=== PATIENT | male | born 1950 | race Caucasian/White ===

== ENCOUNTER 2016-06-20 20:29 | Emergency (ER) | payer OTHER, MEDICARE ==
[~2016-06-20 20:29] MED LIST: AMLO5 PO; BUPR100T4 PO; HYDR25TA5 PO; LACT10SO PO; LIDO5DIS35 TOPICAL; LORA10TA PO; LOSA100T PO; MOBI15TA PO; NORC5TAB PO; OXYB5TAB10 PO; POTA10TA8 PO; PRAZ5CAP PO; SIME80CH CHEW; VENL75TA PO; ZOLP10TA3 PO
== END 2016-06-20 21:09 | disposition left against medical advice (07) ==
LOC: PHED 20:29
DX: R05 Cough (principal)
CPT/HCPCS: 99281

== ENCOUNTER 2016-08-22 11:13 | Inpatient (IN) | payer MEDICARE, OTHER ==
[~2016-08-22] VITALS: Ht 180.3 cm
[2016-08-22] MEDS ORDERED: METOPROLOL TARTRATE 25 MG TAB PO PRN (12:00)
[2016-08-22] MEDS ORDERED: LACTATED RINGER'S 1000 ML IV SCH (12:00)
[2016-08-22] MEDS ORDERED: INSULIN HUMAN REGULAR 1,000 UNITS/10 ML VIAL SQ PRN (12:00)
[2016-08-22] MEDS ORDERED: SODIUM CHLORID 0.9% 500 ML IV SCH (12:00)
[2016-08-22] MEDS ORDERED: ceFAZolin 2 GM PREMIX 50 ML IV SCH (12:00)
[2016-08-22 12:14] VITALS: BP 144/87; PULSE 78; RESP 20; TEMP 98.5; O2SAT 98
[2016-08-22] MEDS ORDERED: PHENYLEPH/NS 1000 MCG/10 ML SYR IV ONE (12:37)
[2016-08-22] MEDS ORDERED: ONDANSETRON HCL 4 MG/2 ML VIAL IV PUSH ONE (12:37)
[2016-08-22] MEDS ORDERED: PROPOFOL 200 MG/20 ML AMP IV ONE (12:37)
[2016-08-22] MEDS ORDERED: NORMOSOL R INJ 2,000 ML IV ONE (12:37)
[2016-08-22] MEDS ORDERED: SODIUM CHLORID 0.9% 500 ML INJ 500 ML IV ONE (12:37)
[2016-08-22 13:01] LABS: PROTHROMBIN TIME - PATIENT 10.6 SEC (9.8-11.6)
[2016-08-22] MEDS ORDERED: MIDAZOLAM HCL 2 MG/2 ML VIAL ONE (13:31)
[2016-08-22] MEDS ORDERED: FAMOTIDINE 20 MG/2 ML VIAL ONE (13:31)
[2016-08-22] MEDS ORDERED: DEXAMETHASONE SOD PHOS 4 MG/ML VIAL ONE (13:31)
[2016-08-22] MEDS ORDERED: fentaNYL CITRATE 250 MCG/5 ML AMP ONE ×3 (13:38→17:59)
[2016-08-22] MEDS ORDERED: ARTIFICIAL TEARS OPTH OINT 3.5 APPLIC/3.5 GM TUBO ONE (13:38)
[2016-08-22] MEDS ORDERED: KETAMINE HCL 500 MG/5 ML VIAL ONE (15:10)
[2016-08-22] MEDS ORDERED: ceFAZolin INJ 1,000 MG VIAL IV ONE (16:29)
[2016-08-22] MEDS ORDERED: SUGAMMADEX SODIUM 200 MG/2 ML VIAL IV PUSH ONE ×2 (18:35)
[2016-08-22] MEDS ORDERED: ONDANSETRON HCL 4 MG/2 ML VIAL IV PUSH PRN (19:00)
[2016-08-22] MEDS ORDERED: MORPHINE SULFATE 8 MG/ML INJ IV PUSH PRN (19:00)
[2016-08-22] MEDS: SODIUM CHLOR 0.9% 1000 ML INJ 1,000 ML IV SCH (19:00)
[2016-08-22] MEDS ORDERED: MORPHINE SULFATE 30 MG/30 ML PCA ONE (19:09)
[2016-08-22] MEDS ORDERED: DO NOT ADM ANY ANTICOAGULANT DRUGS XX PRN (19:14)
[2016-08-22] MEDS ORDERED: *morphine SULFATE 8 MG/ML PERIprocedure ONLY ONE ×2 (19:20→19:38)
[2016-08-22] MEDS: PANTOPRAZOLE SODIUM 40 MG VIAL IV PUSH SCH (19:45)
[2016-08-22] MEDS: ACETAMINOPHEN 1000 MG/100 ML VIAL IV SCH (20:00)
[2016-08-22] MEDS ORDERED: NALOXONE HCL 0.4 MG/ML AMP IV PRN (20:00)
[2016-08-22] MEDS ORDERED: MORPHINE SULFATE 30 MG/30 ML PCA IV SCH (20:00)
[2016-08-22 20:30] LABS: AUTOMATED NEUTROPHIL # 11.5 TH/MM3 (1.8-7.7); BASOPHIL % 0.2 % (0.0-2.0); HEMATOCRIT 40.9 % (39.0-51.0); HEMO FLAGS DIFF FINAL; LYMPH % 6.3 % (9.0-44.0); LYMPHOCYTE # 0.8 TH/MM3 (1.0-4.8); MEAN CELL VOLUME 91.4 FL (80.0-100.0); MEAN CORPUSCULAR HEMOGLOBIN 32.3 PG (27.0-34.0); MEAN CORPUSCULAR HGB CONC 35.3 % (32.0-36.0); MONO % 3.4 % (0.0-8.0); NEUT % 90.1 % (16.0-70.0); PLATELET COUNT 193 TH/MM3 (150-450); RED BLOOD COUNT 4.47 MIL/MM3 (4.50-5.90); RED CELL DISTRIBUTION WIDTH 14.6 % (11.6-17.2); WHITE BLOOD COUNT 12.8 TH/MM3 (4.0-11.0)
[2016-08-22 20:43] LABS: BICARBONATE 26.6 MEQ/L (21.0-32.0); POTASSIUM 3.6 MEQ/L (3.5-5.1)
[2016-08-22] MEDS: DOCUSATE SODIUM 100 MG CAP PO SCH (21:00)
[2016-08-22] MEDS: PRAZOSIN HCL 5 MG CAP PO SCH (21:00)
[2016-08-22 21:16] VITALS: RESP 18
[2016-08-22] MEDS: PCA - TOTAL MG MORPHINE DELIVERED PER SHIFT SCH (21:21)
[2016-08-22 21:28] VITALS: BP 118/78; PULSE 81; RESP 20; TEMP 97.8; O2SAT 98
[2016-08-23] VITALS (8 sets, daily range): BP systolic 112–156; BP diastolic 75–85; PULSE 75–86; RESP 18–20; TEMP 96.4–98.3; O2SAT 93–98
[2016-08-23] MEDS: ZOLPIDEM TARTRATE 10 MG TAB PO PRN ×2 (01:28→20:10)
[2016-08-23] MEDS: ACETAMINOPHEN 1000 MG/100 ML VIAL IV SCH ×4 (01:29→20:00)
[2016-08-23] MEDS: SODIUM CHLOR 0.9% 1000 ML INJ 1,000 ML IV SCH ×3 (04:39→20:10)
[2016-08-23] MEDS: PCA - TOTAL MG MORPHINE DELIVERED PER SHIFT SCH (05:33)
[2016-08-23 06:18] LABS: HEMATOCRIT 37.1 % (39.0-51.0); MEAN CORPUSCULAR HEMOGLOBIN 32.4 PG (27.0-34.0); MEAN CORPUSCULAR HGB CONC 35.2 % (32.0-36.0); PLATELET COUNT 136 TH/MM3 (150-450); RED BLOOD COUNT 4.04 MIL/MM3 (4.50-5.90); RED CELL DISTRIBUTION WIDTH 14.2 % (11.6-17.2); REVIEW FLAG FINAL; WHITE BLOOD COUNT 8.5 TH/MM3 (4.0-11.0)
[2016-08-23 06:36] LABS: BICARBONATE 29.1 MEQ/L (21.0-32.0); POTASSIUM 3.5 MEQ/L (3.5-5.1)
[2016-08-23] MEDS: amLODIPine BESYLATE 5 MG TAB PO SCH (07:41)
[2016-08-23] MEDS: LOSARTAN 50 MG TAB PO SCH (07:41)
[2016-08-23] MEDS: HYDROCHLOROTHIAZIDE 25 MG TAB PO SCH (07:41)
[2016-08-23] MEDS: DOCUSATE SODIUM 100 MG CAP PO SCH ×2 (07:41→20:10)
[2016-08-23] MEDS: VENLAFAXINE HCL XR 75 MG CAP PO SCH (07:42)
[2016-08-23] MEDS: LIDOCAINE HCL 5% PATCH TD SCH (07:46)
--- NOTE | 2016-08-23 08:09 | HHI.PR ---
Subjective Remarks no acute issues overnight. pain controlled with [employer]ER. Denies N/V/F/C/flatus. Has not been OOB. Hungry Objective Vital Signs Vital Signs Date Time Temp Pulse Resp B/P Pulse Ox O2 Delivery O2 Flow Rate FiO2 08/23/16 07:37 18 08/23/16 05:35 18 08/23/16 05:33 18 08/23/16 04:00 96.4 78 20 121/76 97 08/23/16 00:00 96.6 75 20 112/75 98 08/22/16 21:28 97.8 81 20 118/78 98 08/22/16 21:21 18 08/22/16 21:16 18 08/22/16 20:45 97.8 79 14 123/76 95 Nasal Cannula 2 08/22/16 20:30 78 15 122/81 97 Nasal Cannula 2 08/22/16 20:15 81 14 128/89 97 Nasal Cannula 2 08/22/16 20:00 79 12 136/88 97 Nasal Cannula 2 08/22/16 19:45 81 12 143/82 97 Simple Mask 10 08/22/16 19:30 75 14 122/85 97 Simple Mask 10 08/22/16 19:30 14 08/22/16 19:15 83 14 147/67 98 Simple Mask 10 08/22/16 19:10 98.5 78 16 149/79 99 Simple Mask 10 08/22/16 12:14 98.5 78 20 144/87 98 I/O 08/22/16 08/22/16 08/22/16 08/23/16 08/23/16 08/23/16 07:00 15:00 23:00 07:00 15:00 23:00 Intake Total 3150 ml 860 ml Output Total 1025 ml 850 ml Balance 2125 ml 10 ml Intake Oral 0 ml IV Total 550 ml 860 ml Other 2600 ml Output Urine Total 250 ml 850 ml Estimated Blood Loss 150 ml Other 625 ml # Bowel Movements 0 Result Diagram: 08/23/1630 08/23/16 0530 Objective Remarks NAD. A/O x 3 CTAB RRR abd soft, distended, non-tender, no peritoneal signs. Inc c/d/i rousseau urine clear Ext NT. No c/c/e Assessment and Plan Assessment and Plan POD#1 s/p Extensive Lysis of Adhesions, Left Robotic Radical Nephrectomy -Hgb stable. -D/C [employer]ER -Advance diet. -Ambuate -DVT/GI prophylaxis Anant Nicholas MD Aug 23, 2016 08:09
[2016-08-23] MEDS ORDERED: MORPHINE SULFATE 8 MG/ML INJ IV PUSH PRN (09:00)
[2016-08-23] MEDS: SIMETHICONE 80 MG CHEWABLE TAB CHEW PRN (16:24)
[2016-08-23] MEDS: PANTOPRAZOLE SODIUM 40 MG VIAL IV PUSH SCH (18:12)
[2016-08-23] MEDS: PRAZOSIN HCL 5 MG CAP PO SCH (20:10)
[2016-08-24] VITALS: BP 146/86; PULSE 81; RESP 18; TEMP 98.2; O2SAT 93
[2016-08-24] MEDS: ACETAMINOPHEN 1000 MG/100 ML VIAL IV SCH ×3 (03:19→12:52)
[2016-08-24 04:00] VITALS: BP 134/79; PULSE 79; RESP 17; TEMP 96.8; O2SAT 93
[2016-08-24 08:00] VITALS: BP 169/90; PULSE 75; RESP 18; TEMP 97.5; O2SAT 96
[2016-08-24] MEDS: DOCUSATE SODIUM 100 MG CAP PO SCH ×2 (08:30→22:22)
[2016-08-24] MEDS: HYDROCHLOROTHIAZIDE 25 MG TAB PO SCH (08:32)
[2016-08-24] MEDS: amLODIPine BESYLATE 5 MG TAB PO SCH (08:32)
[2016-08-24] MEDS: LOSARTAN 50 MG TAB PO SCH (08:32)
[2016-08-24] MEDS: LIDOCAINE HCL 5% PATCH TD SCH (08:42)
[2016-08-24] MEDS: VENLAFAXINE HCL XR 75 MG CAP PO SCH (08:43)
[2016-08-24 12:00] VITALS: BP 139/80; PULSE 75; RESP 19; TEMP 98; O2SAT 96
[2016-08-24] MEDS: SODIUM CHLOR 0.9% 1000 ML INJ 1,000 ML IV SCH (12:33)
--- NOTE | 2016-08-24 13:28 | HHI.PR ---
Subjective Remarks pain controlled. tolerating regular diet. feels bloated. denies nausea. passing small amount of flatus. ambulating. Denies CP/SOB. Voiding on own. Objective Vital Signs Vital Signs Date Time Temp Pulse Resp B/P Pulse Ox O2 Delivery O2 Flow Rate FiO2 08/24/16 12:00 98.0 75 19 139/80 96 08/24/16 08:00 97.5 75 18 169/90 96 08/24/16 04:00 96.8 79 17 134/79 93 08/24/16 00:00 98.2 81 18 146/86 93 08/23/16 20:00 96.8 86 18 156/80 93 08/23/16 17:22 18 08/23/16 16:00 97.8 86 18 145/85 97 08/23/16 14:38 18 I/O 08/23/16 08/23/16 08/23/16 08/24/16 08/24/16 08/24/16 07:00 15:00 23:00 07:00 15:00 23:00 Intake Total 860 ml 1535 ml 240 ml 1470 ml Output Total 850 ml 1250 ml 1550 ml 500 ml 2300 ml Balance 10 ml 285 ml -1310 ml 970 ml -2300 ml Intake Oral 0 ml 480 ml 240 ml 240 ml IV Total 860 ml 1055 ml 1230 ml Output Urine Total 850 ml 1250 ml 1550 ml 500 ml 2300 ml # Voids 3 # Bowel Movements 0 0 Result Diagram: 08/23/16 0530 08/23/16 0530 Objective Remarks NAD. A/O x 3 CTAB RRR abd soft, distended, non-tender, no peritoneal signs. Inc c/d/i Ext NT. No c/c/e Assessment and Plan Assessment and Plan POD#2 s/p Extensive Lysis of Adhesions, Left Robotic Radical Nephrectomy -Hgb stable. -Hep loc -Advance diet. -Ambuate -DVT/GI prophylaxis -Likely d/c home tomorrow Anant Nicholas MD Aug 24, 2016 13:28
[2016-08-24] MEDS ORDERED: oxyCODONE/ACETAMINOPHEN 5 MG/325 MG TAB PO PRN (13:30)
--- NOTE | 2016-08-24 14:23 | MP ---
cc: ANANT TERRAZAS MD DATE OF SURGERY: 08/22/2016 PREOPERATIVE DIAGNOSIS 1. Left renal cell carcinoma status post CT-guided percutaneous biopsy. 2. Hypertension. 3. Status post liver resection. POSTOPERATIVE DIAGNOSIS 1. Left renal cell carcinoma status post CT-guided percutaneous biopsy. 2. Hypertension. 3. Status post liver resection. PROCEDURE PERFORMED 1. Extensive laparoscopic lysis of adhesions. 2. Robotic-assisted laparoscopic left radical nephrectomy. SURGEON Dr. Terrazas. ANESTHESIA General. COMPLICATIONS None. PREOPERATIVE ANTIBIOTICS Ancef 1 gram IV. DRAINS 16-Khmer Stern catheter to gravity drainage. SPECIMENS Left kidney for permanent. BLOOD LOSS 150 mL. FLUIDS 1200 mL crystalloids. DISPOSITION To recovery. INDICATIONS The patient is a 66-year-old male who was found to have incidentally 3-1/2 cm ___ left upper pole renal mass. The patient underwent a CT-guided percutaneous biopsy which was found to be renal cell carcinoma. Treatment options were discussed including active surveillance versus partial nephrectomy versus open radical nephrectomy. The risks, benefits and alternatives and potential side effects of each one were carefully explained. He elected to proceed with laparoscopic-assisted robotic partial left nephrectomy. However, he did understand that due to his previous abdominal surgery from his liver resection and his hiatal hernia repair, there was a high chance that it could be open as well as a chance that he may lose the entire kidney. Despite these risks, he elected to proceed and informed consent was obtained. PROCEDURE IN DETAIL The patient was properly identified, brought back to the operating room and placed supine on the operating table. Appropriate time-out was performed. Under anesthesiology the patient was intubated induced under general aesthetic. Preop antibiotics in the form of Ancef 1 gram IV were given before starting the procedure. Appropriate time-out was performed. The patient was then placed in the right lateral decubitus position with left side up, all pressure points were padded following the placement of Stern catheter. He was then prepped and draped in normal sterile surgical fashion. He had a large midline scar from his pubic symphysis up to his sternum. Therefore, a stab incision was made in the left upper quadrant about two fingerbreadths below the subcostal margin. A 5 mm Visiport was then placed under direct visualization into the abdominal cavity. On initial inspection there was significant amount of adhesions specifically omentum adhered to the anterior abdominal wall. I was able to find a window with the 5 mm Visiport. Once I was able to find this window the colon and near the kidney appeared to be normal. However, looking back towards the midline anterior abdominal wall, there was a veil of omentum and small bowel adhered to the anterior abdominal wall. Under direct visualization I then placed a 8-mm robotic port approximately a handbreadth off of the ASIS and was able to take down some adhesions, however, I was not able to completely remove the omentum off the anterior abdominal wall. I then did a second stab incision more lateral along the subcostal margin in line with the previously placed 5 mm port and exchanged the 5 mm port with a 8 mg port. The 5 mm Visiport was then placed in this new incision. With the 5 mm degree lens to the 8 mm lower quadrant port I was able to take down the rest of the adhesions through the newly placed 5 mm port. Once these adhesions were taken down I was able to successfully place a midline 12 mm camera port just lateral to the umbilicus under direct visualization. A 12 mm per diem physical therapist assistant port was then placed in between the 8 mm left hand robotic port and the camera port. Again, all these ports were placed under direct visualization. The robot was then brought into position. I was able to take down the white line of Toldt and reflect the colon medially. The kidney itself appeared to have significant perinephric fat. I was then able to reflect the colon medially to expose the retroperitoneum and I was easily able to find the gonadal vein and the ureter. A plane was made in between the ureter and the psoas muscle. I then retracted the large kidney towards the anterior abdominal wall and marched cephalad up the psoas muscle following the gonadal vein to the insertion of the left renal vein. There was several lumbar veins that were seen, these were taken with the robotic vessel sealer. At this point I was able to find the insertion of the gonadal vein into the left renal vein. This was taken with the vessel sealer as well after dissecting out circumferentially. Some of the lymphatic tissue was then carefully dissected off of the hilum. This exposed the renal artery and renal vein. At this point I then began to mobilize the rest of the kidney in preparation for doing a partial nephrectomy. However, in the upper pole where the mass was located it was significantly scarred in and inflamed, in fact it was completely attached to the spleen and the splenorenal ligament. I attempted to dissect off the perinephric fat around this area but it was very sticky and inflamed and almost concrete in nature. At this point I decided that it would be safely to remove the kidney. At this point I carefully dissected the upper pole attachments which was quite difficult due to the biopsy and inflammatory desmoplastic reaction, however I was eventually able to mobilize the upper pole, at this time with the endovascular stapler I then took the artery and vein separately. I then came across the remaining upper pole attachments and did come across the left adrenal gland Partially. At this point the kidney was then completely free except for the inferior portion with the ureter and the gonadal vein. This was taken with endovascular GI stapler. At this point the kidney was extremely large and was unable to be placed in a bag for later removal. I therefore extended the left upper quadrant excision and extracted the kidney through this incision. It was then closed with a running 1-0 PDS. ____ was then performed. The underside of the incision was free of bowel. There was no evidence of any bleeding within the abdominal cavity itself. All ports were removed under direct visualization. These were then closed with 4-0 Monocryl. Of note, the first 45 minutes of this case involved taking down the abdominal adhesions. Once the skin incisions were closed this concluded the procedure. The patient was extubated and sent to recovery in stable condition. Sponge and needle count was correct at the end of the case. He will be transferred to the floor for routine postoperative care. Anant Terrazas MD EMJuliette/RYDER /2:11 PM /1:23 PM
[2016-08-24] MEDS: SIMETHICONE 80 MG CHEWABLE TAB CHEW PRN (14:27)
[2016-08-24] MEDS: oxyCODONE/ACETAMINOPHEN 5 MG/325 MG TAB PO PRN ×3 (14:32→22:23)
[2016-08-24 16:00] VITALS: BP 141/85; PULSE 75; RESP 18; TEMP 98.6; O2SAT 96
[2016-08-24] MEDS: PANTOPRAZOLE SODIUM 40 MG VIAL IV PUSH SCH (18:21)
[2016-08-24] MEDS: PRAZOSIN HCL 5 MG CAP PO SCH (21:00)
[2016-08-24] MEDS: ZOLPIDEM TARTRATE 10 MG TAB PO PRN (22:23)
[2016-08-24 23:57] VITALS: BP 128/74; PULSE 80; RESP 17; TEMP 97; O2SAT 96
[2016-08-25 08:00] VITALS: BP 130/77; PULSE 81; RESP 17; TEMP 96.9; O2SAT 97
[2016-08-25] MEDS: VENLAFAXINE HCL XR 75 MG CAP PO SCH (09:00)
[2016-08-25] MEDS: HYDROCHLOROTHIAZIDE 25 MG TAB PO SCH (09:57)
[2016-08-25] MEDS: amLODIPine BESYLATE 5 MG TAB PO SCH (09:57)
[2016-08-25] MEDS: DOCUSATE SODIUM 100 MG CAP PO SCH (09:58)
[2016-08-25] MEDS: LOSARTAN 50 MG TAB PO SCH (09:58)
[2016-08-25] MEDS: oxyCODONE/ACETAMINOPHEN 5 MG/325 MG TAB PO PRN (09:59)
[2016-08-25] MEDS: LIDOCAINE HCL 5% PATCH TD SCH (10:01)
--- NOTE | 2016-08-26 09:32 | HHI.DS ---
Discharge Summary Admission Date Aug 22, 2016 at 18:47 Discharge Date: Aug 25, 2016 Admitting Diagnosis Left Renal Mass Procedures 1. Extensive Lysis of Adhesions 2. Left Robotic Radical Nephrectomy CBC/BMP: 08/23/1630 08/23/16529 Hospital Course 66 yo male with a left renal mass. He underwent a difficult Left Robotic Radical Nephrectomy 08/22/2016. He was admitted following the procedure. Catheter was removed on POD #1 and he was voiding on his own. His pain was well controlled with oral pain meds. He was able to ambulate on his own. On POD#3, he became agitated and combatative. Hedemanded to be discharged. Since he was medically stable, he was discharged home. Pt Condition on Discharge: Fair Discharge Disposition: Discharge Home Discharge Instructions DIET: Follow Instructions for: As Tolerated, No Restrictions Activities you can perform: Full Weight Bearing, Shower Only-No Bath Activities to avoid: Strenuous Activity Additional Activity Instructio: No heavy lifting greater than 15 lbs x 4 weeks. Continued Medications: Amlodipine (Norvasc) 5 Mg Tab 5 MG PO DAILY Blood Pressure Management #30 Ref 0 TAB Hydrochlorothiazide (Hydrochlorothiazide) 25 Mg Tab 25 MG PO DAILY #30 Ref 0 TAB Lactulose Liq (Lactulose Liq) 10 Gm/15 Ml Soln 30 ML PO Ref 0 ML Lidocaine Patch 12 HR (Lidoderm Patch 12 HR) 5% Patch 1 PATCH TOPICAL DAILY Remove patch after 12 hours Pain Management #1 Ref 0 BOX Loratadine (Loratadine) 10 Mg Tab 10 MG PO DAILY Allergy Management Ref 0 TAB Losartan (Losartan) 100 Mg Tab 100 MG PO DAILY Blood Pressure Management #30 Ref 0 TAB Meloxicam (Mobic) 15 Mg Tab 15 MG PO DAILY Pain #20 Ref 0 TAB Potassium Chloride ER (Potassium Chloride CR) 10 Meq Tab 20 MEQ PO DAILY TAB Prazosin (Prazosin) 5 Mg Cap 5 MG PO HS Blood Pressure Management #60 Ref 0 CAP Simethicone (Simethicone) 80 Mg Chw 80 MG CHEW QID PRN GAS RETENTION Ref 0 TAB Venlafaxine (Effexor) 75 Mg Tab 75 MG PO DAILY #60 Ref 0 TAB Zolpidem (Zolpidem) 10 Mg Tab 10 MG PO HS PRN INSOMNIA Ref 0 TAB Anant Nicholas MD Aug 26, 2016 09:32
== END 2016-08-25 10:28 | disposition home or self-care (01) | DRG 658 ==
LOC: HSDC 11:13 → EDSTATUS 13:30 → HPAC 18:47 → N07B 21:01
PROVIDERS: ADMIT Urology; ATTEND Urology
PROC: 0DNW4ZZ Release Peritoneum, Percutaneous Endoscopic Approach (ICD-10-PCS; 2016-08-22)
PROC: 8E0W4CZ Robotic Assisted Procedure of Trunk Region, Percutaneous Endoscopic Approach (ICD-10-PCS; 2016-08-22)
PROC: 0TT14ZZ Resection of Left Kidney, Percutaneous Endoscopic Approach (ICD-10-PCS; principal; 2016-08-22 14:04)
DX: C64.2 Malignant neoplasm of left kidney, except renal pelvis (principal); I10 Essential (primary) hypertension; K66.0 Peritoneal adhesions (postprocedural) (postinfection)
CPT/HCPCS: 76998; 80048; 85025; 85027; 85610; 86850; 86900; 86901; 86920; 88307; C9113; J0131; J0690; J1100; J2250; J2270; J2370; J2405; J3010; J7030; J7040

== ENCOUNTER 2016-12-05 13:37 | Emergency (ER) | payer OTHER, MEDICARE ==
[~2016-12-05] VITALS: Ht 182.9 cm; Wt 93.0 kg
[~2016-12-05 13:37] MED LIST changes: -BUPR100T4 PO; -NORC5TAB PO; -OXYB5TAB10 PO
[2016-12-05 13:51] VITALS: BP 131/81; PULSE 93; RESP 16; TEMP 98.7; O2SAT 95
[2016-12-05 13:54] VITALS: BP 131/81; PULSE 96; RESP 16; O2SAT 95
[2016-12-05] MEDS ORDERED: MORPHINE SULFATE 4 MG/ML INJ IV PUSH ONE (14:00)
[2016-12-05] MEDS ORDERED: ONDANSETRON HCL 4 MG/2 ML VIAL IV PUSH ONE (14:00)
[2016-12-05 14:20] LABS: AUTOMATED NEUTROPHIL # 5.3 TH/MM3 (1.8-7.7); BASOPHIL # 0.1 TH/MM3 (0-0.2); BASOPHIL % 0.9 % (0.0-2.0); EOSINOPHIL # 0.2 TH/MM3 (0-0.4); EOSINOPHIL % 2.2 % (0.0-4.0); HEMATOCRIT 43.4 % (39.0-51.0); HEMO FLAGS DIFF FINAL; LYMPH % 22.5 % (9.0-44.0); LYMPHOCYTE # 1.7 TH/MM3 (1.0-4.8); MEAN CELL VOLUME 91.8 FL (80.0-100.0); MEAN CORPUSCULAR HGB CONC 34.9 % (32.0-36.0); NEUT % 68.4 % (16.0-70.0); PLATELET COUNT 185 TH/MM3 (150-450); RED BLOOD COUNT 4.73 MIL/MM3 (4.50-5.90); RED CELL DISTRIBUTION WIDTH 14.5 % (11.6-17.2); WHITE BLOOD COUNT 7.7 TH/MM3 (4.0-11.0)
[2016-12-05 14:28] LABS: APTT (PATIENT) 25.8 SEC (24.3-30.1); INTERNATIONAL NORMALIZED RATIO 0.9 RATIO; PROTHROMBIN TIME - PATIENT 10.2 SEC (9.8-11.6)
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
[2016-12-05 14:36] LABS: BICARBONATE 27.6 MEQ/L (21.0-32.0); POTASSIUM 3.4 MEQ/L (3.5-5.1)
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
[2016-12-05] MEDS ORDERED: SIME1CHW10 PO (15:13)
[2016-12-05] MEDS ORDERED: POTA-163 PO (15:13)
[2016-12-05] MEDS ORDERED: LIDO1PAD52 TOPICAL (15:13)
[2016-12-05] MEDS ORDERED: CLAR10CA3 PO (15:13)
[2016-12-05] MEDS ORDERED: IODIXANOL 320 MG/ML 10 ML VIAL (for Rad CT) IV ONE (15:44)
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
[2016-12-05 15:51] VITALS: BP 148/87; PULSE 82; RESP 16; O2SAT 98
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
--- NOTE | 2016-12-05 16:54 | EKG ---
Date Performed: 12/05/2016 Time Performed: 14:00:56 PTAGE: 66 years EKG: Sinus rhythm NORMAL ECG NO PREVIOUS TRACING DOCTOR: Rehan Joyce Interpretating Date/Time 12/05/2016 16:50:54
[2016-12-05] MEDS ORDERED: DICL75TA PO (17:03)
[2016-12-05] MEDS ORDERED: PERC5TAB12 PO (17:03)
== END 2016-12-05 17:25 | disposition home or self-care (01) ==
LOC: NEPC 13:37
DX: S40.012A Contusion of left shoulder, initial encounter (principal); S09.90XA Unspecified injury of head, initial encounter; S13.4XXA Sprain of ligaments of cervical spine, initial encounter; R07.9 Chest pain, unspecified; M25.552 Pain in left hip; R10.9 Unspecified abdominal pain; K76.89 Other specified diseases of liver; I10 Essential (primary) hypertension; F17.200 Nicotine dependence, unspecified, uncomplicated; V89.2XXA Person injured in unspecified motor-vehicle accident, traffic, initial encounter; Z79.01 Long term (current) use of anticoagulants; Z86.59 Personal history of other mental and behavioral disorders; Z86.79 Personal history of other diseases of the circulatory system; Z87.19 Personal history of other diseases of the digestive system
CPT/HCPCS: 70450; 71260; 72125; 72131; 73030; 73502; 74177; 80048; 85025; 85610; 85730; 93005; 96374; 96375; 99285; J2270; J2405; Q9967